=== PATIENT | female | born 1975 | race American Indian/Alaskan Native ===

== ENCOUNTER 2017-07-14 10:45 | Emergency (ER) | payer SELFPAY ==
[2017-07-14] MEDS ORDERED: ASPIRIN PO ONE (10:59)
[2017-07-14 11:00] VITALS: BP 116/88
[2017-07-14 11:33] LABS: Basophils # (Auto) 0.1 K/mm3 (0.0-0.1); Basophils % (Auto) 0.5 % (0.0-1.8); Eosinophils # (Auto) 0.2 K/mm3 (0.0-0.4); Eosinophils % (Auto) 1.5 % (0.0-4.3); Lymphocytes # (Auto) 1.9 K/mm3 (1.2-5.4); Lymphocytes % (Auto) 12.7 % (13.4-35.0); Mean Corpuscular HGB Conc 30 % (30-34); Mean Corpuscular Volume 72 fl (79-97); Monocytes # (Auto) 0.9 K/mm3 (0.0-0.8); Monocytes % (Auto) 5.8 % (0.0-7.3); Platelet Count 547 K/mm3 (140-440); Red Blood Count 4.48 M/mm3 (3.65-5.03); Red Cell Distribution Width 19.4 % (13.2-15.2)
[2017-07-14 11:37] LABS: Hematocrit 32.2 % (30.3-42.9); Hemoglobin 9.6 gm/dl (10.1-14.3); Mean Corpuscular Hemoglobin 22 pg (28-32)
[2017-07-14 11:49] LABS: BUN/Creatinine Ratio 17; Blood Urea Nitrogen 12 mg/dL (7-17); Calcium 8.7 mg/dL (8.4-10.2); Hemolysis Index 23
== END 2017-07-14 12:50 | disposition other institution (70) ==
LOC: ED 10:45
DX: R55 Syncope and collapse (principal); R07.89 Other chest pain; Z53.21 Procedure and treatment not carried out due to patient leaving prior to being seen by health care provider
CPT/HCPCS: 36415; 80048; 84484; 85025; 93005; 93010

== ENCOUNTER 2018-04-23 10:04 | Outpatient (CLI) | payer MEDICAID ==
--- NOTE | 2018-04-24 11:14 | Nuclear Medicine Report ---
Nuclear medicine thyroid uptake study: Examination performed with [id number] [id number]. History: Evaluate thyroid function. Findings: There is uniform uptake noted in the right lobe of the thyroid gland. The left lobe is not visualized. The isthmus is barely visualized. No focal area of increase or decrease uptake is noted at the right lobe. 4 hour uptake is 18.4%. Normal being 4-18%. 25 hour uptake is 36%. Normal being 18-36%. Impression: Nonvisualized left lobe of thyroid gland. Sonographic correlation is advised. Normal uptake at right lobe of thyroid gland.
== END 2018-04-23 10:05 | disposition home or self-care (01) ==
LOC: NM 10:04
PROVIDERS: ATTEND Surgery
DX: E04.1 Nontoxic single thyroid nodule (principal); Z87.891 Personal history of nicotine dependence
CPT/HCPCS: 78012; A9516

== ENCOUNTER 2018-11-16 18:06 | Emergency (ER) | payer MEDICAID ==
--- NOTE | 2018-11-16 19:16 | Emergency Department Report ---
Blank Doc - Documentation Documentation: pt presents for syncope that occurred yesterday at work no CP prior to LOC states she has diaphoresis prior to syncope has been seen for this previously denies THORNTON, no vision changes, no numbness or weakness PMHx lupus, thyroid cancer former smoker +drinker no drug use
[2018-11-16 19:17] VITALS: BP 154/84
[2018-11-16 19:33] LABS: Basophils # (Auto) 0.1 K/mm3 (0.0-0.1); Eosinophils # (Auto) 0.2 K/mm3 (0.0-0.4); Eosinophils % (Auto) 1.7 % (0.0-4.3); Hematocrit 27.5 % (30.3-42.9); Hemoglobin 8.6 gm/dl (10.1-14.3); Lymphocytes # (Auto) 2.6 K/mm3 (1.2-5.4); Lymphocytes % (Auto) 29.1 % (13.4-35.0); Mean Corpuscular HGB Conc 31 % (30-34); Mean Corpuscular Volume 69 fl (79-97); Monocytes # (Auto) 0.5 K/mm3 (0.0-0.8); Monocytes % (Auto) 5.4 % (0.0-7.3); Platelet Count 502 K/mm3 (140-440); Red Blood Count 3.98 M/mm3 (3.65-5.03); Red Cell Distribution Width 19.5 % (13.2-15.2)
[2018-11-16 19:44] LABS: INR 1.02 (0.87-1.13)
[2018-11-16 19:47] LABS: BUN/Creatinine Ratio 10; Blood Urea Nitrogen 6 mg/dL (7-17); Calcium 8.7 mg/dL (8.4-10.2); Hemolysis Index 0
== END 2018-11-17 00:50 | disposition left against medical advice (07) ==
LOC: ED 18:06
DX: R55 Syncope and collapse (principal); Z53.21 Procedure and treatment not carried out due to patient leaving prior to being seen by health care provider
CPT/HCPCS: 36415; 80048; 83735; 84484; 84703; 85025; 85379; 85610